=== PATIENT | female | born 1945 | race Two or more races ===

== ENCOUNTER 2022-04-19 03:49 | Emergency (ER) | payer OTHER ==
[~2022-04-19] VITALS: Ht 162.6 cm; Wt 73.5 kg
[2022-04-19] MEDS ORDERED: AVAPRO75 MG (04:01)
[2022-04-19] MEDS ORDERED: LEVOTHYROXINE25 MCG (04:01)
[2022-04-19] MEDS ORDERED: ELIQUIS5 MG PO (07:30)
[2022-04-19] MEDS ORDERED: TOPROL XL50 M1 PO (07:30)
== END 2022-04-19 08:01 | disposition home or self-care (01) ==
LOC: ER 03:49
DX: I48.91 Unspecified atrial fibrillation (principal); R00.2 Palpitations; I10 Essential (primary) hypertension; Z88.8 Allergy status to other drugs, medicaments and biological substances